=== PATIENT | female | born 1990 | race Two or more races ===

== ENCOUNTER 2016-12-14 12:26 | Emergency (ER) | payer OTHER ==
[~2016-12-14] VITALS: Ht 167.6 cm; Wt 62.1 kg
--- NOTE | 2016-12-14 12:40 | NUR ---
PT CAME IN WITH C/O LOWER ABD PAIN, +VAG DISCHARGE, THICK, ITCHY X 3 DAYS, DENIES DYSURIA. DENIES FEVER. VSS. REPORTS TO BE SEXUALLY ACTIVE. SEEN BY MOUNTAIN OR GLACIER GUIDE. SAFETY AND COMFORT MEASURES PROVIDED. WILL MONITOR.
--- NOTE | 2016-12-14 13:00 | NUR ---
PELVIC EXAM DONE AT BS BY LEI FRASER.
[2016-12-14 13:13] LABS: APPEARANCE,URINE SL CLOUDY (CLEAR); BILIRUBIN,URINE NEGATIVE (NEGATIVE); BLOOD, URINE TRACE-INTA Ery/uL (NEGATIVE); COLOR,URINE YELLOW (YELLOW); KETONES,URINE NEGATIVE (NEGATIVE); LEUKOCYTE ESTERASE ,URINE 3+ (NEGATIVE); NITRITE, URINE NEGATIVE (NEGATIVE); PH,URINE 7.5 (5.0-8.0); PROTEIN,URINE NEGATIVE (NEGATIVE); UGLUCOSE NEGATIVE (NEGATIVE); UROBILINOGEN,URINE 0.2 EU/dL (0.2)
[2016-12-14 13:16] LABS: PREGNANCY TEST URINE QUAL NEGATIVE (NEGATIVE)
[2016-12-14 13:19] LABS: BACTERIA,URINE Few /HPF (None Seen); SQUAMOUS EPITHELIAL CELL,UR Few /HPF (None Seen); WBC,URINE 21-50 /HPF (0-3)
[2016-12-14] MEDS ORDERED: FLUCONAZOLE (100 MG) 100 MG TABLET PO ONE (14:00)
[2016-12-14] MEDS ORDERED: CEFTRIAXONE 500 MG VIAL IM ONE (14:00)
[2016-12-14] MEDS ORDERED: AZITHROMYCIN 250 MG TABLET PO ONE (14:00)
[2016-12-14] MEDS ORDERED: FLUCONAZOLE (100 MG) 100 MG TABLET ONE (14:00)
[2016-12-14] MEDS ORDERED: LIDOCAINE /MPF 1% VIAL 5 ML VIAL ONE (14:01)
[2016-12-14] MEDS ORDERED: CEFTRIAXONE 500 MG VIAL ONE (14:01)
[2016-12-14] MEDS ORDERED: AZITHROMYCIN 250 MG TABLET ONE (14:01)
--- NOTE | 2016-12-14 14:10 | NUR ---
PT MEDICATED ORDERED.
--- NOTE | 2016-12-14 14:16 | NUR ---
Patient discharged to home in stable condition. Written and verbal after care instructions given. Patient verbalizes understanding of instruction.
[2016-12-14 14:18] VITALS: BP 108/71
== END 2016-12-14 14:20 | disposition home or self-care (01) ==
LOC: ER 12:29
DX: A64 Unspecified sexually transmitted disease (principal)
CPT/HCPCS: 81001; 84703; 87081; 87086; 87110; 87210; 96372; 99284; A4606; J0696 ×2; J3490 ×2; Z7610; 81000-TC